=== PATIENT | female | born 1955 | race Asian ===

== ENCOUNTER 2017-09-15 06:22 | Day surgery (SDC) | payer OTHER ==
[2017-09-15] MEDS ORDERED: MIDAZOLAM 1 MG/ML 2 ML INJ (09:16)
[2017-09-15] MEDS ORDERED: FENTAnyl 50 MCG/ML VIAL (09:16)
== END 2017-09-15 17:13 | disposition home or self-care (01) ==
LOC: GIL 06:22
DX: Z12.11 Encounter for screening for malignant neoplasm of colon (principal); K64.4 Residual hemorrhoidal skin tags; E11.9 Type 2 diabetes mellitus without complications
CPT/HCPCS: 45378; 82962